=== PATIENT | male | born 1995 | race Caucasian/White ===

== ENCOUNTER 2023-10-15 13:02 | Emergency (ER) | payer MEDICAID, SELFPAY ==
[2023-10-15 13:03] VITALS: BP 118/75; PULSE 74; RESP 18; TEMP 37.1; O2SAT 100
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
[2023-10-15 13:16] VITALS: BP 113/67; PULSE 83; RESP 18; O2SAT 100
--- NOTE | 2023-10-15 13:20 | ECG_ITS ---
Test Date: 2023-10-15 13:57:16 Measurements Intervals [place] Rate: 71 P: 53 MD: 151 QRS: 56 QRSD: 97 T: 45 QT: 391 QTc: 425 Interpretive Statements SINUS RHYTHM INCOMPLETE RIGHT BUNDLE BRANCH BLOCK BORDERLINE ECG No previous ECG available for comparison Electronically Signed On 10-15-2023 14:07:36 CDT by Jorge Teresa D.O.
[2023-10-15 14:20] VITALS: BP 99/60; PULSE 64; RESP 22; O2SAT 99
--- NOTE | 2023-10-15 14:21 | PC.NURSE ---
Pt attempting to provide urine sample with no results
[2023-10-15 14:25] VITALS: BP 97/58; PULSE 65; RESP 21; O2SAT 99
[2023-10-15 14:25] LABS: Basophils Percent Auto 0.4 % (0.2-1.2); Eosinophils Absolute Auto 0.2 K/mm3 (0-0.3); Eosinophils Percent Auto 2.5 % (0-4.4); Hematocrit 42.4 % (42.0-52.0); Hemoglobin 14.1 g/dL (14.0-18.0); Immature Granulocyte Absolute 0.03 K/mm3 (0.00-0.031); Immature Granulocyte Percent A 0.3 % (0-0.5); Lymphocytes Absolute Auto 2.74 K/mm3 (0.9-3.2); Lymphocytes Percent Auto 28.5 % (18.3-44.2); Mean Corpuscular HGB Conc 33.3 g/dl (32-36); Mean Corpuscular Hemoglobin 31.7 pg (26-34); Mean Corpuscular Volume 95.3 fl (80-100); Mean Platelet Volume 9.4 fl (7.4-10.4); Monocytes Percent Auto 10.6 % (2.6-8.5); Neutrophils Absolute Auto 5.6 K/mm3 (1.3-6.7); Neutrophils Percent Auto 57.7 % (45.5-73.1); Platelet Count Result 277 k/mm3 (150-375); Red Blood Count 4.45 M/mm3 (4.6-6.20); Red Cell Distribution Width 12.3 % (11.5-14.5); White Blood Count 9.6 K/mm3 (4.5-10.0)
[2023-10-15 14:26] LABS: Glucose Point of Care 106 mg/dl (65-105)
[2023-10-15 14:30] VITALS: BP 95/60; PULSE 66; RESP 20; O2SAT 99
[2023-10-15 14:37] LABS: Anion Gap 7 mmol/L (4-12); Blood Urea Nitrogen 9 mg/dL (9-20); Calcium 9.1 mg/dL (8.4-10.2); Carbon Dioxide 31 mmol/L (22-30); Chloride 100 mmol/L (98-107); Estimated CRCL calculation 139 ml/min; Estimated Glomerular Filt Rate > 60; Glucose 93 mg/dL (65-110); Potassium 3.7 mmol/L (3.4-5.0); Sodium 138 mmol/L (137-145)
[2023-10-15 15:16] VITALS: BP 91/52; PULSE 69; RESP 15; O2SAT 100
--- NOTE | 2023-10-15 15:42 | PC.NURSE ---
pt attempting to urinate again
[2023-10-15 16:09] LABS: Amphetamine Screen Urine Negative (Negative); Barbiturate Screen Urine Negative (Negative); Benzodiazepines Screen Urine Negative (Negative); Cannabinoid Screen Urine Positive (Negative); Cocaine Screen Urine Negative (Negative); Methadone Screen Urine Negative (Negative); Opiate Screen Urine Negative (Negative); Phencyclidine Screen Urine Negative (Negative)
== END 2023-10-15 16:34 | disposition home or self-care (01) ==
PROVIDERS: Emergency Provider Student in an Organized Health Care Education/Training Program
DX: F12.988 Cannabis use, unspecified with other cannabis-induced disorder (principal)
CPT/HCPCS: 36415; 80048; 80307; 82948; 85025; 93005; 99283